=== PATIENT | male | born 1955 | race Caucasian/White ===

== ENCOUNTER 2022-06-08 09:40 | Outpatient (CLI) | payer MEDICARE, OTHER ==
[2022-06-08] MEDS ORDERED: Magnevist 469MG/ML 20 ML VIAL ONE (10:13)
== END 2022-06-08 09:41 | disposition home or self-care (01) ==
LOC: CSHMRI 09:40
PROVIDERS: ATTEND Otolaryngology
DX: H90.3 Sensorineural hearing loss, bilateral (principal)
CPT/HCPCS: 70553; 82565